=== PATIENT | male | born 1970 | race African-American/Black ===

== ENCOUNTER 2019-05-24 13:55 | Emergency (ER) | payer SELFPAY ==
[~2019-05-24] VITALS: Ht 188 cm; Wt 81.0 kg
[~2019-05-24 13:55] MED LIST: DIPH25CA83 PO; INSU3INS6 SUBCUT; METF500C MC; MIRT45TA2 PO; RISP3TAB6 PO; TRAZ-251 PO
[2019-05-24 15:51] VITALS: BP 130/80
== END 2019-05-24 16:32 | disposition left against medical advice (07) ==
LOC: ER 16:26
DX: R10.9 Unspecified abdominal pain (principal); Z53.21 Procedure and treatment not carried out due to patient leaving prior to being seen by health care provider

== ENCOUNTER 2019-06-13 18:03 | Emergency (ER) | payer SELFPAY ==
[~2019-06-13] VITALS: Ht 185.4 cm; Wt 76.0 kg
[2019-06-13] MEDS ORDERED: DIPHENHYDRAMINE 25MG CAPSULE PO ONE (19:15)
[2019-06-13 19:34] VITALS: BP 133/87
== END 2019-06-13 19:34 | disposition home or self-care (01) ==
LOC: ER 18:03
DX: S80.862A Insect bite (nonvenomous), left lower leg, initial encounter (principal); S80.861A Insect bite (nonvenomous), right lower leg, initial encounter; S30.861A Insect bite (nonvenomous) of abdominal wall, initial encounter; W57.XXXA Bitten or stung by nonvenomous insect and other nonvenomous arthropods, initial encounter; Y93.89 Activity, other specified; Y92.89 Other specified places as the place of occurrence of the external cause; I10 Essential (primary) hypertension; E11.9 Type 2 diabetes mellitus without complications; Z79.84 Long term (current) use of oral hypoglycemic drugs; Z79.899 Other long term (current) drug therapy
CPT/HCPCS: 99282; Q0163